=== PATIENT | male | born 1960 | race Caucasian/White ===

== ENCOUNTER 2022-09-24 02:43 | Emergency (ER) | payer OTHER, SELFPAY ==
--- NOTE | 2022-09-24 02:50 | PC.NURSE ---
Pt to ed with c/o of left shoulder pain. Pt presents with pain stating pain has been reoccurring for several years. Pt states they have seen multiple providers for the issue. Pt states nothing makes the pain better or worse, and the pain comes and goes. Pt states his pain is a 9/10 rating and the pain is radiating into his fingers.
[2022-09-24 02:54] VITALS: BP 167/94; PULSE 72; RESP 16; TEMP 36.5; O2SAT 99
[2022-09-24] MEDS: KETOROLAC 30 MG/ML VIAL (*BKC) IM (04:49)
--- NOTE | 2022-09-24 04:58 | PC.NURSE ---
Pt requested that hydrocodone acetaminophen and Norflex be taken closer to time of leaving due to having to drive himself home.
--- NOTE | 2022-09-24 05:15 | PC.NURSE ---
Pt requested oral pain medications to be given at time of discharge so he would not be drowsy when driving home.
--- NOTE | 2022-09-24 05:28 | ED.GENADULT ---
HPI - General Adult General Chief complaint: Extremity Problem,Nontraumatic Stated complaint: pinched nerve in neck, numbness left side Time Seen by Provider: 09/24/22 04:21 History of Present Illness HPI narrative: Patient is a 62-year-old gentleman who presents the emergency department with chief complaint of left upper extremity pain. Patient reports he has prior history of an injury and is had multiple injections for cervical radiculopathy and cervical stenosis. The patient states that he started having pain in the left upper extremity and has tingling but no weakness. Patient states this is similar to his previous episodes but a little bit worse usually the tingling stops at the elbow and the swelling went all the way down to his hands. Related Data Allergies Allergy/AdvReac Type Severity Reaction Status Date / Time No Known Allergies Allergy Verified 09/24/22 04:46 Review of Systems Review of Systems: A 10 system review of systems was completed on the patient and is negative except for what is stated in the HPI. Nursing and ancillary documentation was reviewed. Exam Narrative: GENERAL: Well-appearing, well-nourished, and in no acute distress. HEAD: Normocephalic, atraumatic. EYES: PERRLA and EOMI. ENT: Nares clear, no rhinorrhea or epistaxis. Mucous membranes moist. NECK: Supple. CHEST: Clear to auscultation. No respiratory distress. HEART: Regular rate and rhythm. No murmur heard. Normal peripheral pulses. ABDOMEN: Soft, nontender, nondistended, normal active bowel sounds. EXTREMITIES: Normal range of motion. No edema. SKIN: Warm, dry, no rash. NEURO: No focal deficits. Alert and oriented x3. Slight decrease sensation of the left upper extremity PSYCH: Normal mood and affect. Course Vital Signs Vital signs: Vital Signs Temperature 36.5 C 09/24/22 02:54 Pulse Rate 72 09/24/22 02:54 Respiratory Rate 16 09/24/22 02:54 Blood Pressure 167/94 H 09/24/22 02:54 Pulse Oximetry 99 09/24/22 02:54 Oxygen Delivery Room Air 09/24/22 02:54 Temperature 36.5 C 09/24/22 02:54 Pulse Rate 72 09/24/22 02:54 Respiratory Rate 16 09/24/22 02:54 Blood Pressure 167/94 H 09/24/22 02:54 Pulse Oximetry 99 09/24/22 02:54 Oxygen Delivery Room Air 09/24/22 02:54 Medical Decision Making MDM Narrative Medical decision making narrative: Differential diagnosis include cervical radiculopathy, The patient is showing any focal deficits at this time the patient was treated with Decadron and treated with Norflex and Toradol the patient is feeling much better at this time his symptoms have essentially resolved. Patient will be started on a course of diclofenac steroid pulse and will be given a prescription for Norflex. Vital Signs Vital Signs: Vital Signs Temperature 36.5 C 09/24/22 02:54 Pulse Rate 72 09/24/22 02:54 Respiratory Rate 16 09/24/22 02:54 Blood Pressure 167/94 H 09/24/22 02:54 Pulse Oximetry 99 09/24/22 02:54 Oxygen Delivery Room Air 09/24/22 02:54 Temperature 36.5 C 09/24/22 02:54 Pulse Rate 72 09/24/22 02:54 Respiratory Rate 16 09/24/22 02:54 Blood Pressure 167/94 H 09/24/22 02:54 Pulse Oximetry 99 09/24/22 02:54 Oxygen Delivery Room Air 09/24/22 02:54 Discharge Plan Discharge Clinical Impression: Cervical radiculopathy Patient Disposition: Home, Self-Care Condition: Stable Instructions: Antibiotic Form, Cervical Radiculopathy (ED), Acute Neck Pain (ED), Chronic Neck Pain (DC) Prescriptions: New diclofenac potassium 50 mg tablet 50 mg PO TID PRN (Reason: pain) Qty: 30 0RF prednisone 20 mg tablet 40 mg PO DAILY 5 Days Qty: 10 0RF orphenadrine citrate 100 mg tablet extended release 100 mg PO Q12H Qty: 20 0RF Follow-up/Referrals: Jose Alfredo,Mulu Jackson MD [Primary Care Provider] - Time of Disposition: 05:33
[2022-09-24] MEDS: ORPHENADRINE CITRATE 100 MG TABLET.ER PO (05:44)
[2022-09-24] MEDS: HYDROcodone/acetaminophen (*CRX) 5-325 MG TABLET 1 TAB PO (05:44)
== END 2022-09-24 05:51 | disposition home or self-care (01) ==
PROVIDERS: Emergency Provider Emergency Medicine; PCP Hospitalist
DX: M54.12 Radiculopathy, cervical region (principal)
CPT/HCPCS: 96372; 99284; A9270; J1100; J1885